=== PATIENT | female | born 1960 | race Caucasian/White ===

== ENCOUNTER 2016-03-10 00:08 | Inpatient (IN) | payer MEDICARE, OTHER ==
[~2016-03-10] VITALS: Ht 162.6 cm; Wt 71.0 kg
[2016-03-10] MEDS ORDERED: SODIUM CHLOR 0.9% 1000 ML INJ 1,000 ML IV ONE ×3 (00:16→00:46)
[2016-03-10 00:20] VITALS: BP 145/72; PULSE 101; RESP 18; TEMP 98.2; O2SAT 97
[2016-03-10 00:26] VITALS: RESP 18
[2016-03-10] MEDS ORDERED: SODIUM CHLORIDE 0.9% FLUSH 5 ML FLUSH IVF PRN (00:30)
[2016-03-10] MEDS ORDERED: INSULIN HUMAN REGULAR 1,000 UNITS/10 ML VIAL IV PUSH ONE (00:45)
[2016-03-10] MEDS ORDERED: PROMETHAZINE INJ 25 MG/ML VIAL IM ONE (00:45)
[2016-03-10] MEDS ORDERED: CALCIUM GLUCONATE 10% 1 GM/10 ML VIAL IV PUSH ONE (00:45)
[2016-03-10 00:53] LABS: BLOOD GAS BASE EXCESS -4.9 mmol/L (-2-2); BLOOD GAS CARBOXYHEMOGLOBIN 6.1 % (0-4); BLOOD GAS HCO3 19 mmol/L (22-26); BLOOD GAS METHEMOGLOBIN 1.4 % (0-2); BLOOD GAS O2 HGB SATURATION 90 % (90-100); BLOOD GAS OXYGEN CONTENT 19.3 Vol % (12.0-20.0); BLOOD GAS PCO2 34 mmHg (38-42); BLOOD GAS PO2 94 mmHg (61-120); BLOOD GAS TOTAL HGB 15.2 G/DL (12.0-16.0); TEMP CORR TO 98.6
[2016-03-10 00:54] LABS: CRITICAL VALUE YES; DRAW SITE LT RADIAL; NUMBER OF ARTERIAL PUNCTURES 2; STAT YES; ULNAR PULSE Y
[2016-03-10 01:16] LABS: AUTOMATED NEUTROPHIL # 15.1 TH/MM3 (1.8-7.7); BASOPHIL # 0.1 TH/MM3 (0-0.2); BASOPHIL % 0.5 % (0.0-2.0); EOSINOPHIL % 0.2 % (0.0-4.0); HEMATOCRIT 48.3 % (35.0-46.0); HEMO FLAGS DIFF FINAL; LYMPH % 7.8 % (9.0-44.0); LYMPHOCYTE # 1.3 TH/MM3 (1.0-4.8); MEAN CELL VOLUME 93.5 FL (80.0-100.0); MEAN CORPUSCULAR HEMOGLOBIN 31.3 PG (27.0-34.0); MEAN CORPUSCULAR HGB CONC 33.5 % (32.0-36.0); MONO % 2.5 % (0.0-8.0); PLATELET COUNT 290 TH/MM3 (150-450); RED BLOOD COUNT 5.17 MIL/MM3 (4.00-5.30); RED CELL DISTRIBUTION WIDTH 13.5 % (11.6-17.2)
[2016-03-10 01:28] LABS: BACTERIA, URINE RARE /hpf; BLOOD, URINE MOD (NEG); COMMENT (UR) CULT NOT INDICATED; CULTURE IF INDICATED CULT NOT INDICATED; GLUCOSE,URINE 1000 mg/dL (NEG); KETONE, URINE 80 mg/dL (NEG); NITRITE,URINE NEG (NEG); SQUAMOUS EPITHELIAL CELL URINE 2 /hpf (0-5); URINE COLOR LIGHT-YELLOW (YELLW/STRAW)
[2016-03-10 01:29] VITALS: BP 158/72; PULSE 105; RESP 21; O2SAT 97
[2016-03-10 01:33] LABS: ALT (GPT) 23 U/L (10-53); ANION GAP 16 MEQ/L (5-15); AST (GOT) 13 U/L (15-37); BICARBONATE 21.5 MEQ/L (21.0-32.0); BLOOD UREA NITROGEN 22 MG/DL (7-18); CHLORIDE 98 MEQ/L (98-107); GLOMERULAR FILTRATION RATE 56 ML/MIN (>89); MAGNESIUM 2.2 MG/DL (1.5-2.5); POTASSIUM 4.4 MEQ/L (3.5-5.1); SODIUM (NA) 135 MEQ/L (136-145)
[2016-03-10 01:34] LABS: ALKALINE PHOSPHATASE 106 U/L (45-117); BETA-HYDROXYBUTYRATE 4.38 MMOL/L (0.00-0.39); TOTAL BILIRUBIN ADULT 1.1 MG/DL (0.2-1.0)
[2016-03-10] MEDS ORDERED: INSULIN HUMAN REGULAR 1,000 UNITS/10 ML VIAL OTHER ONE (01:45)
--- NOTE | 2016-03-10 02:26 | PD ---
HPI Chief Complaint: Diabetic Time Seen by Provider: 00:16 Travel History International Travel<30 days: No Contact w/Intl Traveler<30days: No Traveled to known affect area: No History of Present Illness HPI This is a 55-year-old insulin-dependent diabetic. Patient arrives with high blood sugar. He has a history of diabetes. [place]. After realizing she did not bring the proper insulin pump supplies when she came to the ER. She has had polyuria lately. Polydipsia also reported. Nausea reported. PFSH Past Medical History Atrial Fibrillation: Yes Diabetes: Yes Patient Takes Glucophage: No Immunizations Current: Yes Myocardial Infarction: Yes Tetanus Vaccination: < 5 Years Influenza Vaccination: No ?: Not Past Surgical History Insulin Pump: Yes Social History Alcohol Use: No Tobacco Use: Yes Substance Use: No Allergies-Medications (Allergen,Severity, Reaction): Coded Allergies: Canned Fish (Verified Allergy, Intermediate, Rash, 03/10/16) Review of Systems Except as stated in HPI: all other systems reviewed are Neg Physical Exam Narrative GENERAL: 55-year-old female pleasant SKIN: Warm and dry. HEAD: Atraumatic. Normocephalic. EYES: Pupils equal and round. No scleral icterus. No injection or drainage. ENT: No nasal bleeding or discharge. Mucous membranes pink and moist. NECK: Trachea midline. No JVD. CARDIOVASCULAR: Tachycardia. Regular rhythm. RESPIRATORY: No accessory muscle use. Clear to auscultation. Breath sounds equal bilaterally. GASTROINTESTINAL: Abdomen soft, non-tender, nondistended. Hepatic and splenic margins not palpable. MUSCULOSKELETAL: No obvious deformities. No clubbing. No cyanosis. No edema. NEUROLOGICAL: Awake and alert. No obvious cranial nerve deficits. Motor grossly within normal limits. Normal speech. PSYCHIATRIC: Appropriate mood and affect; insight and judgment normal. Data Data Last Documented VS Vital Signs Date Time Temp Pulse Resp B/P Pulse Ox O2 Delivery O2 Flow Rate FiO2 03/10/16 01:29 105 21 158/72 97 Room Air 03/10/16 00:20 98.2 Vital signs reviewed Orders Electrocardiogram (03/10/16 00:16) Complete Blood Count With Diff (03/10/16 00:16) Comprehensive Metabolic Panel (03/10/16 00:16) Magnesium (Mg) (03/10/16 00:16) Phosphorus (Po4) (03/10/16 00:16) Beta Hydroxybutyrate (Acetone) (03/10/16 00:16) Lactic Acid (03/10/16 00:16) Urinalysis - C+S If Indicated (03/10/16 00:16) Arterial Blood Gas (Abg) (03/10/16 00:16) Blood Glucose (03/10/16 00:16) Blood Glucose (03/10/16 01:16) Ecg Monitoring (03/10/16 00:16) Iv Access Insert/Monitor (03/10/16 00:16) Oximetry (03/10/16 00:16) Oxygen Administration (03/10/16 00:16) NPO (03/10/16 00:16) Sodium Chlor 0.9% 1000 Ml Inj (Ns 1000 M (03/10/16 00:16) Sodium Chlor 0.9% 1000 Ml Inj (Ns 1000 M (03/10/16 00:46) Sodium Chloride 0.9% Flush (Ns Flush) (03/10/16 00:30) Blood Glucose (03/10/16 00:16) Insulin Human Regular Inj (Novolin R Inj (03/10/16 00:45) Promethazine Inj (Phenergan Inj) (03/10/16 00:45) Sodium Chlor 0.9% 1000 Ml Inj (Ns 1000 M (03/10/16 00:45) Calcium Gluconate Inj (Calcium Gluconate (03/10/16 00:45) Insulin Human Regular Inj (Novolin R Inj (03/10/16 01:45) Alcohol (Ethanol) (03/10/16 01:42) Drug Screen, Random Urine (03/10/16 01:42) Admit Order (Ed Use Only) (03/10/16 02:22) Labs Laboratory Tests Test 03/10/16 03/10/16 03/10/16 00:35 00:48 00:57 Urine Color LIGHT-YELLOW Urine Turbidity CLEAR Urine pH 6.0 Urine Specific [place] 1.027 Urine Protein NEG mg/dL Urine Glucose (UA) 1000 mg/dL Urine Ketones 80 mg/dL Urine Occult Blood MOD Urine Nitrite NEG Urine Bilirubin NEG Urine Urobilinogen LESS THAN 2.0 MG/DL Urine Leukocyte Esterase NEG Urine RBC LESS THAN 1 /hpf Urine WBC 5 /hpf Urine Squamous Epithelial 2 /hpf Cells Urine Bacteria RARE /hpf Microscopic Urinalysis Comment CULT NOT INDICATED Urine Opiates Screen NEG Urine Barbiturates Screen NEG Urine Amphetamines Screen NEG Urine Benzodiazepines Screen NEG Urine Cocaine Screen NEG Urine Cannabinoids Screen POS Blood Gas Puncture Site LT RADIAL Blood Gas Patient Temperature 98.6 Blood Gas HCO3 19 mmol/L Blood Gas Base Excess -4.9 mmol/L Blood Gas Oxygen Saturation 90 % Arterial Blood pH 7.37 Arterial Blood Partial 34 mmHg Pressure CO2 Arterial Blood Partial 94 mmHg Pressure O2 Arterial Blood Oxygen Content 19.3 Vol % Arterial Blood 6.1 % Carboxyhemoglobin Arterial Blood Methemoglobin 1.4 % Blood Gas Hemoglobin 15.2 G/DL White Blood Count 17.0 TH/MM3 Red Blood Count 5.17 MIL/MM3 Hemoglobin 16.2 GM/DL Hematocrit 48.3 % Mean Corpuscular Volume 93.5 FL Mean Corpuscular Hemoglobin 31.3 PG Mean Corpuscular Hemoglobin 33.5 % Concent Red Cell Distribution Width 13.5 % Platelet Count 290 TH/MM3 Mean Platelet Volume 9.5 FL Neutrophils (%) (Auto) 89.0 % Lymphocytes (%) (Auto) 7.8 % Monocytes (%) (Auto) 2.5 % Eosinophils (%) (Auto) 0.2 % Basophils (%) (Auto) 0.5 % Neutrophils # (Auto) 15.1 TH/MM3 Lymphocytes # (Auto) 1.3 TH/MM3 Monocytes # (Auto) 0.4 TH/MM3 Eosinophils # (Auto) 0.0 TH/MM3 Basophils # (Auto) 0.1 TH/MM3 CBC Comment DIFF FINAL Differential Comment Sodium Level 135 MEQ/L Potassium Level 4.4 MEQ/L Chloride Level 98 MEQ/L Carbon Dioxide Level 21.5 MEQ/L Anion Gap 16 MEQ/L Blood Urea Nitrogen 22 MG/DL Creatinine 1.03 MG/DL Estimat Glomerular Filtration 56 ML/MIN Rate Random Glucose 499 MG/DL Lactic Acid Level 2.4 mmol/L Calcium Level 9.2 MG/DL Phosphorus Level 3.8 MG/DL Magnesium Level 2.2 MG/DL Total Bilirubin 1.1 MG/DL Aspartate Amino Transf 13 U/L (AST/SGOT) Alanine Aminotransferase 23 U/L (ALT/SGPT) Alkaline Phosphatase 106 U/L Total Protein 7.2 GM/DL Albumin 4.0 GM/DL Ethyl Alcohol Level LESS THAN 3 MG/DL B-Hydroxybutyrate 4.38 MMOL/L MDM Medical Decision Making Medical Screen Exam Complete: Yes Emergency Medical Condition: Yes Medical Record Reviewed: Yes Differential Diagnosis DKA, hyperkalemia, hyperglycemia Narrative Course Lactic acid 2.4 LFTs normal U tox + cannabnoids Beta hydroxybutyrate 4.38 EtOH < 3 7.37/34/19 base excess -4.9 CBC & BMP Diagram 03/10/16 00:57 AG 16 Patient received 3 L crystalloid and 10 units of insulin twice. She'll be admitted for management of mild DKA. Discussed with Dr. Cervantes. Critical Care Narrative Aggregate critical care time was 35 minutes. Time to perform other separately billable procedures was not included in the critical care time. My time did not include minutes spent treating any other patients simultaneously or on activities that did not directly contribute to the patient's treatment. The services I provided to this patient were to treat and/or prevent clinically significant deterioration that could result in: Cardiopulmonary arrest, life-threatening arrhythmia I provided critical care services requiring my management, as noted below: Chart data review, documentation time, medication orders and management, vital sign assessments/reviewing monitor data, ordering and reviewing lab tests, ordering and interpreting/reviewing x-rays and diagnostic studies, care of the patient and discussion of the patient with the admitting physicians. Diagnosis Primary Impression: DKA (diabetic ketoacidoses) Qualified Code: E10.10 - Diabetic ketoacidosis without coma associated with type 1 diabetes mellitus Admitting Information Admitting Physician Requests: Admit Minor Garcias MD Mar 10, 2016 02:26
[2016-03-10] MEDS ORDERED: ACETAMINOPHEN 325 MG TAB PO PRN (02:45)
[2016-03-10] MEDS ORDERED: MORPHINE SULFATE 4 MG/ML INJ IV PRN (02:45)
[2016-03-10] MEDS ORDERED: BISACODYL 10 MG SUPP PR PRN (02:45)
[2016-03-10] MEDS ORDERED: DEXTROSE 50% IN WATER 50 ML VIAL(D50) IV PUSH PRN (02:45)
[2016-03-10] MEDS ORDERED: ACETAMINOPHEN/HYDROcodone 325 MG/5 MG TAB PO PRN (02:45)
[2016-03-10] MEDS ORDERED: SODIUM CHLORIDE 0.9% FLUSH 5 ML FLUSH FLUSH PRN (02:45)
[2016-03-10] MEDS ORDERED: ONDANSETRON HCL 4 MG/2 ML VIAL IVP PRN (02:45)
[2016-03-10] MEDS ORDERED: GLUCAGON 1 MG/ML VIAL OTHER PRN (02:45)
[2016-03-10 03:15] LABS: AMPHETAMINE, URINE NEG (NEG); BARBITURATES, URINE NEG (NEG); COCAINE, URINE NEG (NEG)
[2016-03-10] MEDS: SODIUM CHLOR 0.9% 1000 ML INJ 1,000 ML IV SCH ×2 (03:35→04:57)
[2016-03-10 03:57] VITALS: BP 125/58; PULSE 103; RESP 17; O2SAT 96
[2016-03-10 04:00] VITALS: BP 117/57; PULSE 105; RESP 20; TEMP 97.2; O2SAT 96
--- NOTE | 2016-03-10 04:08 | HHI.HP ---
HPI Service [facility] Primary Care Physician Non-Staff Admission Diagnosis Mild DKA Diagnoses: (1) DM (diabetes mellitus) Diagnosis: Principal (2) Acidosis Diagnosis: Principal (3) Renal insufficiency Diagnosis: Principal (4) Leukocytosis Diagnosis: Principal Travel History International Travel<30 Days: No Contact w/Intl Traveler <30 Da: No Traveled to Known Affected Are: No History of Present Illness This is a 55-year-old female with a PMH of HTN, A. fib and DM who came to the ER secondary to elevated BS. Pt states she has Insulin Pump, recently moved from [place], however did not bring all of her supplies and ran out of insulin today. Denies fever, chills or sick contacts. Notes polydipsia and polyuria. On arrival, BP 145/72, HR 101, O2 sat 98% on RA, Afebrile. WBC 17. CO2 21, AG 16, Creatinine 1.03. BS 499. Lactic Acid 2.4. B-hydroxy 4.38. Urine Drug Screen positive for Marijuana. U/a negative for UTI, +ketones. S/p 10u Insulin and 2L IVF in ER. Review of Systems Other ROS: 14 point review of systems otherwise negative. Past Family Social History Past Medical History PMH: HTN, A. fib and DM Past Surgical History PAST SURGICAL HISTORY: Insulin Pump Allergies: Coded Allergies: Canned Fish (Verified Allergy, Intermediate, Rash, 03/10/16) Family History PAST FAMILY HISTORY: Reviewed, positive for DM. Social History PAST SOCIAL HISTORY: Positive for tobacco. Negative for alcohol or drugs. Physical Exam Vital Signs Vital Signs Date Time Temp Pulse Resp B/P Pulse Ox O2 Delivery O2 Flow Rate FiO2 03/10/16 01:29 105 21 158/72 97 Room Air 03/10/16 00:26 18 03/10/16 00:26 98 Room Air 03/10/16 00:22 101 16 97 Room Air 03/10/16 00:20 98.2 101 18 145/72 97 Physical Exam PE: GENERAL: Middle-aged female in no acute distress. HEENT: PERRLA, EOMI. No scleral icterus or conjunctival pallor. No lid lag or facial droop. CARDIOVASCULAR: Regular rate and rhythm. No obvious murmurs to auscultation. No chest tenderness to palpation. RESPIRATORY: No obvious rhonchi or wheezing. Clear to auscultation. Breath sounds equal bilaterally. GASTROINTESTINAL: Abdomen soft, non-tender, nondistended. BS normal. MUSCULOSKELETAL: Extremities without clubbing, cyanosis, or edema. No obvious deformities. NEUROLOGICAL: Awake, alert and oriented x4. No focal neurologic deficits. Moving both upper and lower extremities spontaneously. Laboratory Laboratory Tests Test 03/10/16 03/10/16 03/10/16 00:35 00:48 00:57 Urine Color LIGHT-YELLOW Urine Turbidity CLEAR Urine pH 6.0 Urine Specific [place] 1.027 Urine Protein NEG Urine Glucose (UA) 1000 Urine Ketones 80 Urine Occult Blood MOD Urine Nitrite NEG Urine Bilirubin NEG Urine Urobilinogen LESS THAN 2.0 Urine Leukocyte Esterase NEG Urine RBC LESS THAN 1 Urine WBC 5 Urine Squamous Epithelial 2 Cells Urine Bacteria RARE Microscopic Urinalysis Comment CULT NOT INDICATED Urine Opiates Screen NEG Urine Barbiturates Screen NEG Urine Amphetamines Screen NEG Urine Benzodiazepines Screen NEG Urine Cocaine Screen NEG Urine Cannabinoids Screen POS Blood Gas Puncture Site LT RADIAL Blood Gas Patient Temperature 98.6 Blood Gas HCO3 19 Blood Gas Base Excess -4.9 Blood Gas Oxygen Saturation 90 Arterial Blood pH 7.37 Arterial Blood Partial 34 Pressure CO2 Arterial Blood Partial 94 Pressure O2 Arterial Blood Oxygen Content 19.3 Arterial Blood 6.1 Carboxyhemoglobin Arterial Blood Methemoglobin 1.4 Blood Gas Hemoglobin 15.2 White Blood Count 17.0 Red Blood Count 5.17 Hemoglobin 16.2 Hematocrit 48.3 Mean Corpuscular Volume 93.5 Mean Corpuscular Hemoglobin 31.3 Mean Corpuscular Hemoglobin 33.5 Concent Red Cell Distribution Width 13.5 Platelet Count 290 Mean Platelet Volume 9.5 Neutrophils (%) (Auto) 89.0 Lymphocytes (%) (Auto) 7.8 Monocytes (%) (Auto) 2.5 Eosinophils (%) (Auto) 0.2 Basophils (%) (Auto) 0.5 Neutrophils # (Auto) 15.1 Lymphocytes # (Auto) 1.3 Monocytes # (Auto) 0.4 Eosinophils # (Auto) 0.0 Basophils # (Auto) 0.1 CBC Comment DIFF FINAL Differential Comment Sodium Level 135 Potassium Level 4.4 Chloride Level 98 Carbon Dioxide Level 21.5 Anion Gap 16 Blood Urea Nitrogen 22 Creatinine 1.03 Estimat Glomerular Filtration 56 Rate Random Glucose 499 Lactic Acid Level 2.4 Calcium Level 9.2 Phosphorus Level 3.8 Magnesium Level 2.2 Total Bilirubin 1.1 Aspartate Amino Transf 13 (AST/SGOT) Alanine Aminotransferase 23 (ALT/SGPT) Alkaline Phosphatase 106 Total Protein 7.2 Albumin 4.0 Ethyl Alcohol Level LESS THAN 3 B-Hydroxybutyrate 4.38 Result Diagram: 03/10/165603/10/1656 Assessment and Plan Problem List: (1) DM (diabetes mellitus) ICD Code: E11.9 Status: Acute (2) Acidosis ICD Code: E87.2 Status: Acute (3) Renal insufficiency ICD Code: N28.9 Status: Acute (4) Leukocytosis ICD Code: D72.829 Status: Acute Assessment and Plan A/P: 1. DM: Uncontrolled. Insulin Pump however ran out of meds. BS 499 on arrival , s/p 10u Insulin x2 doses in addition to IVF. Check Hgb A1c, Sliding Scale w/ Accu-Cheks. 2. Acidosis: Mild DKA. +AG, Ketonuria, CO2 normal. B-hydroxy 4.38. Aggressive IVF, sliding scale. 3. Renal Insufficiency: Creatinine 1.03, no previous labs for comparison, presumably new. U/a negative for UTI. IVF, repeat labs in am. 4. Leukocytosis: WBC 17. Afebrile. No obvious source of infection. IVF, BS control, repeat labs in am. 5. DVT Prophylaxis: SCD/Teds. 6. Social work for d/c planning as needed. 7. Case discussed w/ ER physician at length. Physician Certification 2 Midnight Certification Type: Admission for Inpatient Services Order for Inpatient Services The services are ordered in accordance with Medicare regulations or non- Medicare payer requirements, as applicable. In the case of services not specified as inpatient-only, they are appropriately provided as inpatient services in accordance with the 2-midnight benchmark. Estimated LOS (days): 2 days is the estimated time the patient will need to remain in the hospital, assuming treatment plan goals are met and no additional complications. Post-Hospital Plan: Home Carisa Cervantes MD Mar 10, 2016 04:08
[2016-03-10] MEDS: INSULIN ASPART SUPPLEMENTAL SCALE SQ SCH ×2 (04:55→10:28)
[2016-03-10 08:00] VITALS: BP 118/62; PULSE 93; RESP 18; TEMP 97.2; O2SAT 98
[2016-03-10] MEDS ORDERED: SODIUM CHLORIDE 0.9% FLUSH 5 ML FLUSH FLUSH SCH (09:00)
[2016-03-10 09:31] LABS: AUTOMATED NEUTROPHIL # 13.6 TH/MM3 (1.8-7.7); BASOPHIL # 0.1 TH/MM3 (0-0.2); BASOPHIL % 0.7 % (0.0-2.0); EOSINOPHIL % 0.1 % (0.0-4.0); HEMATOCRIT 42.2 % (35.0-46.0); HEMO FLAGS DIFF FINAL; LYMPH % 9.5 % (9.0-44.0); LYMPHOCYTE # 1.5 TH/MM3 (1.0-4.8); MEAN CELL VOLUME 90.9 FL (80.0-100.0); MEAN CORPUSCULAR HEMOGLOBIN 30.3 PG (27.0-34.0); MEAN CORPUSCULAR HGB CONC 33.4 % (32.0-36.0); MONO % 4.9 % (0.0-8.0); NEUT % 84.8 % (16.0-70.0); PLATELET COUNT 265 TH/MM3 (150-450); RED BLOOD COUNT 4.65 MIL/MM3 (4.00-5.30); RED CELL DISTRIBUTION WIDTH 13.3 % (11.6-17.2); WHITE BLOOD COUNT 16.1 TH/MM3 (4.0-11.0)
[2016-03-10 10:01] LABS: ALKALINE PHOSPHATASE 86 U/L (45-117); ALT (GPT) 19 U/L (10-53); ANION GAP 12 MEQ/L (5-15); AST (GOT) 14 U/L (15-37); BICARBONATE 22.6 MEQ/L (21.0-32.0); BLOOD UREA NITROGEN 17 MG/DL (7-18); CHLORIDE 103 MEQ/L (98-107); GLOMERULAR FILTRATION RATE 73 ML/MIN (>89); POTASSIUM 4.4 MEQ/L (3.5-5.1); SODIUM (NA) 138 MEQ/L (136-145); TOTAL BILIRUBIN ADULT 1.3 MG/DL (0.2-1.0)
--- NOTE | 2016-03-10 10:38 | HHI.DCPOC ---
Discharge Care Plan Diagnosis: (1) DKA (diabetic ketoacidoses) (2) DM (diabetes mellitus) Your Health Problems Are: Fluctuating Blood Sugars Goals to Promote Your Health * To prevent worsening of your condition and complications * To maintain your health at the optimal level Directions to Meet Your Goals Take your medications as prescribed Follow your dietary instruction Follow activity as directed Keep your appointments as scheduled Take your immunizations and boosters as scheduled If your symptoms worsen call your PCP, if no PCP go to Urgent Care Center or Emergency Room Smoking is Dangerous to Your Health. Avoid second hand smoke Call the 24-hour hour crisis hotline for domestic abuse at Adrianna Keller PA-C Mar 10, 2016 10:38
[2016-03-10] MEDS ORDERED: INSULIN DETEMIR 100 UNITS/ML VIAL SQ ONE (10:45)
[2016-03-10] MEDS ORDERED: INSULIN ASPART 1,000 UNITS/10 ML VIAL SQ ONE (10:45)
--- NOTE | 2016-03-10 12:48 | HHI.PR ---
Subjective Remarks Follow up for DKA. The patient is very upset upon our arrival. She was upset that the nurses are only scheduled to give insulin at 11am when she wanted it given at 10:30am. She adamantly wants to be discharged, she states she plans to go straight to her doctor's hospital in [place] immediately upon leaving this hospital. Otherwise the patient is awake, alert, oriented x4. She states when she showered last night, her subcutaneous catheter came out, and she doesn't have another one to replace it and this is why she went into DKA. The patient reports her insulin pump given 1.8u SQ/r then she does boluses of 3u per carb. Her DKA has been corrected and blood sugars still elevated this morning 277 however the patient adamantly does not want to stay any longer in the hospital. After long discussion, she agrees to stay for some additional doses of insulin then wants to be discharged. She has no other medical complaints at this time. Objective Vitals Vital Signs Date Time Temp Pulse Resp B/P Pulse Ox O2 Delivery O2 Flow Rate FiO2 03/10/16 08:00 97.2 93 18 118/62 98 03/10/16 07:27 Room Air 03/10/16 04:57 Room Air 03/10/16 04:00 97.2 105 20 117/57 96 03/10/16 03:57 103 17 125/58 96 Room Air 03/10/16 01:29 105 21 158/72 97 Room Air 03/10/16 00:26 18 03/10/16 00:26 98 Room Air 03/10/16 00:22 101 16 97 Room Air 03/10/16 00:20 98.2 101 18 145/72 97 I/O 03/09/16 03/09/16 03/09/16 03/10/16 03/10/16 03/10/16 07:00 15:00 23:00 07:00 15:00 23:00 Intake Total 390 ml 1000 ml Output Total 300 ml Balance 90 ml 1000 ml Intake Oral 240 ml IV Total 150 ml 1000 ml Output Urine Total 300 ml Result Diagram: 03/10/1691503/10/16915 Objective Remarks GENERAL: Well-nourished, well-developed middle aged female patient in [facility]. SKIN: Warm and dry. No rash. HEAD: Normocephalic. Atraumatic. ENT: No nasal bleeding or discharge. Mucous membranes pink and moist. NECK: Supple. Trachea midline. CARDIOVASCULAR: Regular rate and rhythm. S1, S2 noted. No murmur appreciated. RESPIRATORY: No accessory muscle use. Clear to auscultation. Breath sounds equal bilaterally. GASTROINTESTINAL: Abdomen soft, non-tender, nondistended. Normoactive bowel sounds x4. Insulin pump at [facility] however tubing appears to be pulled out however the patient has it taped to her skin. MUSCULOSKELETAL: No obvious deformities. Extremities without clubbing, cyanosis , or edema. NEUROLOGICAL: AAOx4. No obvious cranial nerve deficits. Motor grossly within normal limits. Normal speech. PSYCHIATRIC: Agitated mood; insight and judgment normal. Urinary Catheter: No Vascular Central Line Catheter: No A/P Problem List: (1) DM (diabetes mellitus) ICD Code: E11.9 Status: Acute (2) Acidosis ICD Code: E87.2 Status: Acute (3) Renal insufficiency ICD Code: N28.9 Status: Acute (4) Leukocytosis ICD Code: D72.829 Status: Acute Assessment and Plan 55-year-old female with a PMH of HTN, A. fib and DM who came to the ER secondary to elevated BS. Pt states she has Insulin Pump, recently moved from [place], however did not bring all of her supplies and ran out of insulin today. DM: Uncontrolled. Insulin Pump however ran out of meds and did not have replacement tubing for her pump after she took the pump off to shower. BS 499 on arrival, s/p 10u Insulin x2 doses in addition to IVF. Check Hgb A1c ( pending at time of discharge). On Sliding Scale w/ Accu-Cheks. See HPI, patient very upset, demanding to be discharged, very uncooperative with staff, however AAOx4, she plans to go straight to her doctor in [place] immediately upon discharge. Blood glucose still 343, given a total of 16u of novolog sq, and Levemir 10u sq prior to discharge. Acidosis: Mild DKA. +AG, Ketonuria, CO2 normal. B-hydroxy 4.38. Aggressive IVF, sliding scale. DKA resolved. Renal Insufficiency: Creatinine 1.03, no previous labs for comparison, presumably new. U/a negative for UTI. IVF, repeat labs today improvement, Cr 0.82. Resolved. Leukocytosis: WBC 17. Afebrile. No obvious source of infection. IVF, BS control. DVT Prophylaxis: SCD/Teds. I spent 35 minutes [id number] with the patient or on the soto discussing the patient's disposition, prognosis, and plan of care with her caregivers. Over half the time spent was devoted to counseling the patient regarding treatment and plan. Written by Adrianna Keller, acting as scribe for Dr. Beckford on 03/10/16 at 10:30. Discharge Planning Discharge patient to home Condition on discharge: Improved Diabetic Diet as tolerated [place] activity Rx written: no medications given at discharge as the patient plans to go immediately to her [facility] in [place] (1hr away). Follow-up with primary care physician TODAY Attending Statement The documentation accurately reflects the work performed [id number] by me, Dr. Beckford on 03/10/16 at 10:30. Adrianna Keller PA-C Mar 10, 2016 12:48 Jake Beckford MD Mar 10, 2016 23:08
--- NOTE | 2016-03-10 13:13 | EKG ---
Date Performed: 03/10/2016 Time Performed: 00:26:24 PTAGE: 55 years EKG: SINUS TACHYCARDIA POSSIBLE RIGHT ATRIAL ENLARGEMENT MARKED LEFT AXIS DEVIATION ABNORMAL ECG NO PREVIOUS TRACING DOCTOR: Cece Schaefer Interpretating Date/Time 03/10/2016 13:09:55
[2016-03-11 17:47] LABS: HEMOGLOBIN A1a 1.3 %; HEMOGLOBIN A1b 0.9 %; HEMOGLOBIN Ao 77.9 %; HEMOGLOBIN F 1.6 %; HEMOGLOBIN LA1C 3.3 %; HEMOGLOBIN P3 5.5 %
== END 2016-03-10 12:01 | disposition home or self-care (01) | DRG 639 ==
LOC: NEPC 00:08 → NEDA 02:24 → N07B 04:23
PROVIDERS: ADMIT Internal Medicine; ATTEND Internal Medicine
DX: E10.10 Type 1 diabetes mellitus with ketoacidosis without coma (principal); I48.91 Unspecified atrial fibrillation; I10 Essential (primary) hypertension; D72.829 Elevated white blood cell count, unspecified; Z96.41 Presence of insulin pump (external) (internal); N28.9 Disorder of kidney and ureter, unspecified; Z72.0 Tobacco use; Z79.4 Long term (current) use of insulin
CPT/HCPCS: 36600; 80053; 80307; 80320; 81001; 82010; 82805; 82948; 83036; 83605; 83735; 84100; 85025; 93005; 96372; 96374; 96375; 96376; J0610; J1815; J2550; J7030